=== PATIENT | female | born 1975 | race Caucasian/White ===

== ENCOUNTER 2025-06-18 11:51 | Inpatient (IN) | payer OTHER, SELFPAY ==
[2025-06-18 07:08] VITALS: BP 138/90
--- NOTE | 2025-06-18 07:41 | ED.GENMED ---
History of Present Illness
General
Chief Complaint: Abdominal Pain
Source: patient
Exam Limitations: none
Time Seen by Provider: 06/18/25 07:17
Nursing documentation reviewed up to this point in time: agreed with
History of Present Illness
History of Present Illness:
Patient with history of IBS, currently taking Wegovy since September 2024 for weight management, presents to ED secondary to worsening abdominal pain associated with nausea and vomiting, since increasing her dose of Wegovy 8 days ago. Since
September, every time she gives her weekly injection, patient reports 'wave of gut punching' sensation which would last up to 48 hours with resolution. However, when she increased her dose 8 days ago, she experienced similar abdominal symptoms but
has not resolved, but has worsened over the past 24 hours. Denies fever or chills. Denies trauma. Patient reports constant diarrhea, which is not new. Denies dizziness or shortness of breath.
Review of Systems
Review of Systems
Allergies reviewed?: Yes
All Other Systems: ROS reviewed and negative except as documented in HPI and ROS
Constitutional: Reports no symptoms; Denies fever
Respiratory: Reports no symptoms
Cardiac: Reports no symptoms
ABD/GI: Reports abdominal pain, nausea, vomiting and diarrhea
Musculoskeletal: Reports no symptoms
Skin: Reports no symptoms
Neurological: Reports no symptoms
Phy Exam
Physical Exam
Physical Exam:
Physical Exam
General: no apparent distress, not acutely ill. afebrile
Head: nc/at. eomi
Neck: supple. no meningeal signs.
Heart: s1/s2 regular rate and rhythm.
Lungs: no acute respiratory distress. clear bilaterally
Abdomen: normal bowel sounds. mild epigastric tenderness to palpation
Neuro: alert and oriented x 3. no focal neurological deficits
Skin: no rash
Psychiatric: well kept. interactive and cooperative
Extremities: no edema. no calf tenderness.
Course
Orders/Labs/Results
Orders:
Orders
06/18/25 07:32
Test Result ONCE
06/18/25 07:34
Morphine Sulfate 2 mg IV NOW STA
US Abdomen Complete/Upper Urgent
Comment:
Reason For Exam: RUQ pain
06/18/25 07:35
0.9% Sodium Chloride 500 ml [Nss] 500 ml IV BOLUS
Ondansetron Injectable [Zofran] 4 mg IV NOW STA
06/18/25 07:49
Complete Blood Count/With Diff Urgent
Comprehensive Metabolic Panel Urgent
HCG, Serum Qualitative Screen Urgent
Lipase Urgent
06/18/25 07:57
Pantoprazole [Protonix IV] 40 mg .ROUTE .STK-MED ONE
06/18/25 07:58
Pantoprazole [Protonix IV] 40 mg IV NOW STA
06/18/25 08:03
CR Obstruct Series W/pa Chest Urgent
Comment:
Reason For Exam: abd pain
06/18/25 10:39
MRI Abdomen [MR Abdomen W/o & W Contrast] Routine
Comment: with MRCP
Reason For Exam: epigastric pain, 6 mm cbd calculus on US
Recent pill cam endoscopy?: No
06/18/25 10:42
GASTROINTESTINAL CONSULT Routine
Consulting Provider: Mary Jane Bales
Was physician already notified: Yes
06/18/25 10:43
Admit/Transfer Patient As Directed
Co-Sign Provider:
Level of Care: Inpatient admission
Assign to:: Medical/Surgical
Physician / Group: Hospitalist
Diagnosis: Abdominal pain
Reason for Hospitalization: as above
Expected length of stay greater than two midnights?: Yes
ELOS- Estimated Length of Stay in days: 2
I certify the patient meets the requirements for IP care: Yes
PRN Pain Medication Management As Directed
May give lesser potent ordered pain med per pt: Yes
preference::
Protocol:: Medication orders for pain may be administered in a
manner that supports deferring to patient preference
when the pt is:
- Requesting an ordered lesser potent pain medication.
Least to most potent pain medications are defined
as: acetaminophen < NSAID < tramadol < opioids
(morphine, oxycodone, hydromorphone).
- Requesting a lesser dose of the same medication IF
ORDERED.
- Requesting a less intrusive route of administration
if both routes are prescribed by the provider (PO <
IV).
06/18/25 10:44
Code Status As Directed
Resuscitation Status: Full Code
06/18/25 11:26
Blood Culture Q30M
FRANK Source: Blood/Venous
Specimen Description:
Morphine Sulfate 2 mg IV Q6HPRN PRN
Ondansetron Injectable [Zofran] 4 mg IV Q6HPRN PRN
06/18/25 11:27
Blood Culture Q30M
FRANK Source: Blood/Venous
Specimen Description:
06/18/25 12:00
Piperacillin/Tazo 3.375 Gram [Zosyn] 3.375 gram in 50 ml IV Q6H
Abnormal Lab Results
06/18/25
07:49
Glucose 102 H mg/dl
(70-99)
06/18/25 07:49
06/18/25 07:49
Vital Signs
Initial and Last Documented VS:
Initial Vital Signs
Temp Pulse Resp BP Pulse Ox
97.9 F 88 18 138/90 99
06/18/25 07:08 06/18/25 07:08 06/18/25 07:08 06/18/25 07:08 06/18/25 07:08
Last Documented Vital Signs
Temp Pulse Resp BP Pulse Ox
97.9 F 52 20 121/63 97
06/18/25 07:08 06/18/25 09:02 06/18/25 09:02 06/18/25 09:02 06/18/25 09:02
MDM/Problems Addressed
MDM/Problems Addressed:
Ultrasound abdomen report reviewed with patient and family. In addition, discussed with on-call GI physician, Dr. Mary Jane Bales, who recommends admission to hospitalist service for further evaluation and treatment, including MRCP.
*Pulse Oximetry
SaO2: 99
Oxygen Mode of Delivery: Room air
Patient hypoxic: no
*Critical Care Note
Total Time (30-74mins, 75-104mins- exclusive of procedures): Not Applicable
ED Attending Note
-
Portions of this chart may have been created with voice recognition software.� Occasional wrong word or��sound alike� substitutions may have occurred due to the inherent limitations of voice recognition software.
Discharge Plan
Departure
Patient Disposition: Admit
Date of Disposition: 06/18/25
Time of Disposition: 09:37
Admit to: Med/Surg
Presentation/result/management discussed w/ accepting MD/: Hospitalist
Discharge Problem:
Abdominal pain
Interventions
Interventions:
*Risk Screen - Suicide Last Done: 06/18/25 07:08
*General Assessment Last Done: 06/18/25 07:08
*Neglect/Abuse Screening Last Done: 06/18/25 07:08
*ED- Fall Risk Assessment Last Done: 06/18/25 11:06
XA-Tmwceo-Hcrracrffr Assessment Last Done: 06/18/25 07:41
[2025-06-18] MEDS: ZOFRAN 4 MG IV ×2 (07:47→11:31)
[2025-06-18] MEDS: NSS 500 IV (07:48)
[2025-06-18] MEDS: MORPHINE SULFATE 2 MG IV ×2 (07:48→12:35)
[2025-06-18] MEDS: PROTONIX IV 40 MG IV (07:58)
[2025-06-18 08:12] LABS: Hematocrit 37.4 % (37.0-47.0); Hemoglobin 12.7 g/dL (12.0-16.0); Mean Corp Hgb Conc. 34.0 g/dL (33.0-37.0); Mean Corpuscular Volume 89.0 fL (81.0-99.0); Nucleated Red Blood Cells % 0 %; Platelet Count 323 10^3/uL (130-400); Red Cell Dist. Width 12.2 % (11.5-14.5)
[2025-06-18 08:25] LABS: HCG, Serum Qualitative Screen Negative
[2025-06-18 08:26] LABS: ALT (SGPT) 16 U/L (0-35); AST (SGOT) 17 U/L (14-36); Albumin 3.6 g/dl (3.5-5.0); Alkaline Phosphatase 76 U/L (38-126); Blood Urea Nitrogen 10 mg/dl (7-17); Calcium 9.4 mg/dl (8.4-10.2); Carbon Dioxide 25 mmol/L (22-30); Chloride 104 mmol/L (98-107); Glucose 102 mg/dl (70-99); Lipase 127 U/L (23-300); Potassium 4.5 mmol/L (3.5-5.1); Sodium 135 mmol/L (135-145); Total Protein 7.0 g/dl (6.3-8.2); eGFR > 60.00
[2025-06-18 09:02] VITALS: BP 121/63
--- NOTE | 2025-06-18 10:13 | HPS.HSE ---
Family Physician
-
Family Physician: * NONE
Chief Complaint
-
Abdominal pain
History of Present Illness
This is a 50-year-old female with past medical history of IBS with chronic diarrhea, presenting to the ED with worsening abdominal pain that began on Monday. Initially the pain was a / but has since progressed to 08/08. She reports taking
Wegovy since September and has recently increased the dosage from 1.0mg to 1.7mg yesterday. Since starting Wegovy, she has been experiencing intermittent abdominal pain that usually resolves on its own, but this current episode has persisted. The
pain is described as a sharp, bandlike and localized to the epigastric region without radiation. This new episode started while she was eating breakfast, although patient states typically pain has not been meal related. She also reported nausea and
a single episode of vomiting yesterday. She has not taken any medication for this pain.
Her history is notable for IBS with diarrhea, but she reports that since starting Wegovy her diarrhea has improved. She has been using MiraLAX for constipation over the past 5 days with her last bowel movement occurring 2 days ago. Pertinent to her
history, she underwent cholecystectomy 2 years ago (March 2023) without complications ever since then. At bedside, she admits fever, chills episode yesterday. She denies NSAID use. She denies alcohol use.
Upon presentation to the ED, blood pressure 138/90, pulse 88, temperature 97.9, respiratory rate 18, O2 sat 99% on room air.� CBC unremarkable, CMP unremarkable, lipase 127.
Medical History
Past Medical History
Past Medical History: Reports Other (IBS)
Past Surgical History: Reports Cholecystectomy
Social History
Tobacco: Non-smoker
Alcohol: Occasional
Drug: None
Living: With Family
Family History
Family History: Not pertinent
Allergies / Home Medications
Allergies reflects when Allergies were last updated in [facility].
Home Medications with original date entered in [facility]
Allergy/Medication List:
Allergies
Allergy/AdvReac Type Severity Reaction Status Date / Time
latex Allergy Mild Itching Verified 06/18/25 07:14
caffeine Allergy Itching Verified 06/18/25 07:14
semaglutide (From Rybelsus) Allergy Unknown Verified 06/18/25 07:14
Home Medications
calcium 333 mg-vit D3 133 unit-magnesium 133 mg-zinc 5 mg tablet 1 tab PO DAILY 06/18/25
desogestrel-ethinyl estradiol 0.1 mg/0.125 mg/0.15 mg-25 mcg tablet (Velivet Triphasic Regimen (28)) 1 tab PO DAILY 06/18/25
fluticasone propionate 50 mcg/actuation nasal spray,suspension 1 spray intranasal DAILYPRN PRN allergies 06/18/25
polyethylene glycol 3350 17 gram oral powder packet (Miralax) 17 g PO DAILYPRN PRN constipation 06/18/25
semaglutide (weight loss) 1.7 mg/0.75 mL subcutaneous pen injector (Wegovy) 1.7 mg SC TU 06/18/25
Review of Systems
-
A 12 point ROS was completed and negative except as noted: Yes
Constitutional: Reports Other (All review of systems obtained and negative except as documented)
Physical Exam
Vital Signs
Vital Signs
Temp Pulse Resp BP Pulse Ox
97.9 F 52 20 121/63 97
06/18/25 07:08 06/18/25 09:02 06/18/25 09:02 06/18/25 09:02 06/18/25 09:02
Physical Exam
General: Well Developed, Well Nourished and No Apparent Distress
HEENT: NormoCephalic
Respiratory: Clear
Cardiac: S1/S2 and Regular Rhythm
GI: Soft, Non Distended, Normal Bowel Sounds and Tender (Epigastric region)
Musculoskeletal: No Edema
Neuro: AO x 3
Psych: Calm
Laboratory Results
-
06/18/25 07:49
06/18/25 07:49
Laboratory Results
Total Bilirubin 0.6 mg/dl (0.2-1.3) 06/18/25 07:49
AST 17 U/L (14-36) 06/18/25 07:49
ALT 16 U/L (0-35) 06/18/25 07:49
Alkaline Phosphatase 76 U/L (38-126) 06/18/25 07:49
Lipase 127 U/L (23-300) 06/18/25 07:49
Impression/Plan
-
Assessment/plan
#Abdominal pain with nausea and vomiting, recent Wegovy dose increased
-Likely multifactorial in the setting of Wegovy related adverse effect vs common bile duct stone
-Hx of cholecystectomy 2 years ago
-Lipase level within normal limit
-Abdominal ultrasound- Common bile duct measures up to 7.6 mm, which is within normal range of less than 10 mm after cholecystectomy. However, there is a probable 6 mm common bile duct calculus in the region of the faye hepatis.
-Will obtain MRI w MRCP
-IV fluids, Zofran, morphine as needed
-GI consulted
-Hold wegovy until further evaluation
-Given Fever, chills, Obtain blood cultures x2
-Abx with Zosyn
-Monitor WBC, temp curve.
CODE STATUS full code
DVT prophylaxis Lovenox
--- NOTE | 2025-06-18 10:18 | PHANOTE ---
med rec note- patient took a family member tramadol yesterday 06/17/2025 for a total dose of 100mg
--- NOTE | 2025-06-18 11:22 | W.PN.UPDATE ---
Update Note
Progress Note Update
HPI: 50-year-old female with past medical history of IBS with chronic diarrhea, on Wegovy for weight control, p/w epigastric abd pain for 4-5 days.
She also c/o fever and chills.
A/P:
# Epigastric abdominal pain with nausea and vomiting, 2/2 CBD stone
# H/o cholecystectomy 2 years ago
Abd US: probable 6 mm common bile duct calculus in the region of the faye hepatis.
Check MRCP
NPO, IVF, pain control with morphine as needed
GI consult
# Fever and chills
Check blood cultures x2
cover with empiric abx Zosyn
Monitor WBC, temp curve.
# Wegovy use for weight control, recent dose increase
Recc to hold off for now in setting of abd pain
DVT prophylaxis Lovenox
CODE STATUS full code
[2025-06-18] MEDS: ZOSYN 50 IV ×3 (11:32→23:39)
[2025-06-18 12:40] VITALS: BP 123/81
[2025-06-18] MEDS: REGLAN 5 MG IV (12:50)
--- NOTE | 2025-06-18 13:03 | CON.GI ---
Addendum entered and electronically signed by Mary Jane Gongora Do, MD 06/18/25 15:35:
I saw and evaluated the patient. I reviewed the resident�s note and agree with findings and plan as documented in the resident�s note. I saw and evaluated the patient. I reviewed the resident�s note and agree with findings and plan as documented in
the resident�s note.
Gisel is a 50yo W visting from [place] with h/o IBS-D, CYY and GLP1 use starting 09/2023 who was admitted for worsening epigastric pain. She started weygovy in 09/2023 for wt loss and 1-2 days post injection there is nausea with
epigastric abd pain. She increased dose recently and gave it to herself yesterday. This AM awoken with nausea/vomiting and severe pain so came to ER. She is here visiting with mom for this weekend with plans to drive home on Monday. She
states sensation feels like prior GB attack 2yrs ago when she had cholecystectomy done then. She denies odynophagia dysphagia constipation or blood in stools. She has chronic loose stools since childhood. VSS obese NTTP NABS. Labs reviewed
normal WBC, Hgb and LFTs. Abd US with CBC 7.6mm and probably 6mm CBD calculus in region of faye hepatitis.
Impression
- Abd pain and Abnormal Abd US with CBD dilation suspicious for choledocholithiasis without cholangitis
- GLP1 use
- IBS-D
- Obesity
- S/p CYY
Recommendations
- MRI/MRCP
- Pending above determine timing of ERCP
- C/w abx
- BC pending
- C/w PPI
Will follow with you
Original Note:
Consultation
-
Date/Time Consultation Requested: 06/18/2025 10:42
Date/Time Consultation Performed: 06/18/2025 12:00
Requesting Provider: Stanford Nunes MD (Resident)
Performing Provider: Ang Price DO (Resident); Mary Jane Bales MD
Reason for Consultation: Abdominal Pain
Medical History
Chief Complaint / HPI
Chief Complaint: Abdominal Pain
History of Present Illness:
Date of Service: June 18, 2025
Gisel Garcia is a 50F with a PMHx of IBS-D, cholecystectomy in 2022 complicated by dumping syndrome, and Wegovy use since September of 2023 who is presenting for upper abdominal pain. She states that the pain is centered around the
epigastrium, but is also present in a band like formation and goes around to the back bilaterally. She states that she has had similar episodes of this pain since starting Wegovy in September of 2023. It feels like a dull pressure and rates it a
5/10. The pain usually resolves, however, when she started experiencing the current episode of pain on Monday, it did not go away. The pain gradually worsened and by Monday, she rated it a 10/10 with associated chills, sweating, and vomiting. The
pain will subside to a 0/10 but then start again. The patient cannot find a causative food or situation for the pain. She does note that the pain is worse with lying down and sitting upright, and that is better when she lays on either side of her
body. Patient otherwise denies icterus, jaundice, dysphagia, odynophagia, hematochezia, or melena. She also denies reflux and changes in bowel consistency but does note that she has been having reflux since starting Wegovy, and that her stools are
usually a [place] Type 6 at baseline due to IBS-D, but that with Wegovy, she has been closer to a [place] Type 4. She reports constipation over the past 5 days with her last BM occurring 2 days ago, for which she has been using Miralax.
ED COURSE
Mild epigastric tenderness on exam, CBC nl, CMP nl, lipse 127
Abdomen US: CBD 7.6 mm (post-CCY), probable 6mm bile duct stone in the region of the faye hepatis
Abdomen XR: No SBO, no free air.
Past Medical History
Past Medical History: Other (IBS-D, dumping syndrome, GERD, Wegovy use since September 2023)
Past Surgical History: Cholecystectomy
Social History
Tobacco: Non-Smoker
Alcohol: Occasional
Drug: None
Allergies / Home Medications
Allergy/AdvReac Type Severity Reaction Status Date / Time
latex Allergy Mild Itching Verified 06/18/25 07:14
caffeine Allergy Itching Verified 06/18/25 07:14
semaglutide (From Rybelsus) Allergy Unknown Verified 06/18/25 07:14
�Medication �Instructions �Recorded
calcium 333 mg-vit D3 133 1 tab PO DAILY 06/18/25
unit-magnesium 133 mg-zinc 5 mg
tablet
desogestrel-ethinyl estradiol 0.1 1 tab PO DAILY 06/18/25
mg/0.125 mg/0.15 mg-25 mcg tablet
(Velivet Triphasic Regimen (28))
fluticasone propionate 50 1 spray intranasal DAILYPRN PRN 06/18/25
mcg/actuation nasal allergies
spray,suspension
polyethylene glycol 3350 17 gram 17 g PO DAILYPRN PRN constipation 06/18/25
oral powder packet (Miralax)
semaglutide (weight loss) 1.7 1.7 mg SC TU 06/18/25
mg/0.75 mL subcutaneous pen
injector (Wegovy)
Review of Systems
-
History Source: Patient
All other systems: A 12 pt ROS was Negative except as stated above in HPI
Vital Signs
Temp Pulse Resp BP Pulse Ox
97.9 F 78 16 123/81 97
06/18/25 07:08 06/18/25 12:40 06/18/25 12:40 06/18/25 12:40 06/18/25 12:40
Physical Exam
Exam
General: Well Developed, Well Nourished and Comfortable
HEENT: Normocephalic and Anicteric
GI: Soft, Non Distended, Normal Bowel Sounds and Tender (mild, epigastrium)
Genito-urinary: No Costovertebral Tender
Skin: Warm and Other (non-jaundiced)
Neuro: Awake and Alert
Psych: Calm
Results
WBC 9.1 10^3/uL (4.8-10.8) 06/18/25 07:49
Hgb 12.7 g/dL (12.0-16.0) 06/18/25 07:49
Hct 37.4 % (37.0-47.0) 06/18/25 07:49
MCV 89.0 fL (81.0-99.0) 06/18/25 07:49
Plt Count 323 10^3/uL (130-400) 06/18/25 07:49
Absolute Neuts (auto) 6.0 10^3/uL (1.4-6.5) 06/18/25 07:49
Sodium 135 mmol/L (135-145) 06/18/25 07:49
Potassium 4.5 mmol/L (3.5-5.1) 06/18/25 07:49
Chloride 104 mmol/L (98-107) 06/18/25 07:49
Carbon Dioxide 25 mmol/L (22-30) 06/18/25 07:49
BUN 10 mg/dl (7-17) 06/18/25 07:49
Creatinine 0.6 mg/dL (0.6-1.0) 06/18/25 07:49
Calcium 9.4 mg/dl (8.4-10.2) 06/18/25 07:49
Total Bilirubin 0.6 mg/dl (0.2-1.3) 06/18/25 07:49
AST 17 U/L (14-36) 06/18/25 07:49
ALT 16 U/L (0-35) 06/18/25 07:49
Alkaline Phosphatase 76 U/L (38-126) 06/18/25 07:49
Lipase 127 U/L (23-300) 06/18/25 07:49
Diagnostic Image Results:
US Abdomen (06/18/2025): Status post cholecystectomy. Common bile duct measures up to 7.6 mm, which is within normal range of less than 10 mm after cholecystectomy. However, there is a probable 6 mm common bile duct calculus in the region of the
faye hepatis.
Chest/Abdomen XR (06/18/2025): No evidence for bowel obstruction. No evidence of free intraperitoneal air.
Colonoscopy: (as reported by patient)
April 2023: polyps removed, normal histology, 5 year follow up
Assessment / Plan
-
Gisel Garcia is a 50F with a PMHx of IBS-D, cholecystectomy in 2022 complicated by dumping syndrome, and Wegovy use since September of 2023 who is presenting for episodic upper abdominal pain that is worse and more persistent since 5 days
ago. She has epigastric tenderness on exam and ultrasound showing a stone in a common bile duct which may be the cause of these symptoms. Patient should get an MR/MRCP to evaluate for stones and possible blockage, but patient is currently without
elevated LFTs, jaundice, or icterus. Pending the results of the MR/MRCP, patient may elect for EUS/ERCP for stone removal. Patient is originally from [place] where she has an established relationship with a automation engineer and she requests
that treatment be delayed if pain can be managed until she gets back to [place]. If MRCP shows small stones and patient remains stable, this could be a possibility.
- Follow up results of MR/MRCP.
- Trend LFTs.
- Monitor for fevers, jaundice, icterus.
- Consider EUS/ERCP pending MR results.
Total Time Spent with Patient (in minutes): 32
-
-
Thank you for consultation and allowing me to participate in the patient's care. Please call the dean of admissions GI physician during the after hours with any questions or concerns.
[2025-06-18 14:29] VITALS: BP 122/75
[2025-06-18] MEDS: NSS 1000 IV (14:54)
--- NOTE | 2025-06-18 16:13 | PTCARENOTE ---
messaged hospitalist and cross cover on behalf of pt. She is asking for Ativan for MRCP d/t claustrophobia
--- NOTE | 2025-06-18 16:41 | PTCARENOTE ---
Patient taken to MRI for MRCP and was not able to tolerate due to severe claustrophobia. RN obtained an order for Ativan x1, but patient refused this dose and continues to refuse MRI due to the claustrophobia. RN and mri technicians had discussion
with her about possible benefits and how Ativan works, but patient states 'unless I am put out, I can not go back down MRI'. Technicians and RN told patient that staff needs her to still be able to respond for mri, so we will not be able to give
stronger sedation. All of this relayed to hospitalist and GI MD.
[2025-06-18 23:24] VITALS: BP 124/94
[2025-06-19] VITALS (9 sets, daily range): BP systolic 120–140; BP diastolic 63–96
[2025-06-19] MEDS: NSS 1000 IV ×2 (02:45→19:48)
[2025-06-19] MEDS: MIRALAX 17 GRAMS PO (05:00)
[2025-06-19] MEDS: ZOSYN 50 IV ×3 (05:22→19:48)
[2025-06-19] MEDS: PROTONIX 40 MG PO (06:26)
[2025-06-19 07:23] LABS: Hematocrit 39.9 % (37.0-47.0); Hemoglobin 13.0 g/dL (12.0-16.0); Mean Corp Hgb Conc. 32.6 g/dL (33.0-37.0); Mean Corpuscular Volume 90.9 fL (81.0-99.0); Nucleated Red Blood Cells % 0 %; Platelet Count 347 10^3/uL (130-400); Red Cell Dist. Width 12.6 % (11.5-14.5)
[2025-06-19 07:57] LABS: ALT (SGPT) 29 U/L (0-35); AST (SGOT) 32 U/L (14-36); Albumin 3.7 g/dl (3.5-5.0); Alkaline Phosphatase 95 U/L (38-126); Blood Urea Nitrogen 7 mg/dl (7-17); Calcium 8.7 mg/dl (8.4-10.2); Carbon Dioxide 27 mmol/L (22-30); Chloride 105 mmol/L (98-107); Glucose 82 mg/dl (70-99); Potassium 4.4 mmol/L (3.5-5.1); Sodium 136 mmol/L (135-145); Total Protein 6.8 g/dl (6.3-8.2); eGFR > 60.00
[2025-06-19] MEDS: OSCAL CAL 500 500 MG PO (08:58)
--- NOTE | 2025-06-19 08:59 | W.PN.HOSP.TC ---
Today's Communication/Plan
-
see A/P
Assessment / Plan
Assessment / Plan
HPI: 50-year-old female with past medical history of IBS with chronic diarrhea, on Wegovy for weight control, p/w epigastric abd pain for 4-5 days.
She also c/o fever and chills.
A/P:
# Epigastric abdominal pain with nausea and vomiting, possibly 2/2 CBD stone
# H/o cholecystectomy 2 years ago
Abd US: probable 6 mm common bile duct calculus in the region of the faye hepatis.
unfortunately pt could not tolerate MRCP
LFT WNL
Plan for EUS
cont NPO, IVF, pain control with morphine as needed
GI on board
# Fever and chills per pt
Follow blood cultures x2
cover with empiric abx Zosyn
Monitor WBC, temp curve, so far both stable
# Wegovy use for weight control, recent dose increase
Recc to hold off for now in setting of abd pain
DVT prophylaxis Lovenox
CODE STATUS full code
DW GI team
Anticipated Discharge: 24 - 48 hours
Subjective/Interval History
-
Date of Service: June 19, 2025
Objective Data
-
Labs:
Laboratory Results
06/19/25
06:38
WBC 7.8
Hgb 13.0
Hct 39.9
Plt Count 347
Sodium 136
Potassium 4.4
Chloride 105
Carbon Dioxide 27
BUN 7
Creatinine 0.8
Glucose 82
Calcium 8.7
Total Bilirubin 0.8
AST 32
ALT 29
Alkaline Phosphatase 95
Vital Signs:
Vital Signs
Temp Pulse Resp BP Pulse Ox
36.9 C 72 18 120/75 99
06/19/25 07:45 06/19/25 07:45 06/19/25 07:45 06/19/25 07:45 06/19/25 07:45
I&O
06/18/25 06/19/25 06/20/25
06:59 06:59 06:59
Intake Total 1929
Balance 1929
Review of Systems
-
History Source: Patient
Abdomen/GI: Reports Abdominal Pain (epigastric discomfort)
Physical Exam
-
General: Well Developed, Well Nourished, No Apparent Distress, Comfortable and Conversant; Negative Respiratory Distress
HEENT: Normocephalic, Atraumatic, Nose Appears Normal and Ears Appear Normal; Negative Oxygen
Respiratory: Clear to Auscultation and Non Labored Respirations; Negative Accessory Resp Muscle Use
Cardiac: Regular Rhythm and S1/S2
GI: Soft, Nondistended and Normal Bowel Sounds
Skin: Warm and Dry
Neuro: Awake, Alert, Oriented, AO x 3 and Nonfocal/Grossly Intact
Psych: Calm and Intact Judgement/Insight
Data Reviewed
-
Labs: Labs Reviewed by me
--- NOTE | 2025-06-19 09:03 | W.PN.GI.CBS2 ---
Addendum entered and electronically signed by Mary Jane Gongora Do, MD 06/19/25 11:57:
I saw and examined the patient.
The [employer] MANAGER's note was reviewed and I agree with the note.
Comment: Her abd pain is improved but still 5 out of 10. She tolerated CLD yesterday and has been NPO today. Refused MRI due to anxiety Vitals stable exam obese no guarding mild TTP epigastric. Labs reviewed LFTs normal . Abd US with
choledocholithiasis.
Recommendations
- NPO
- ERCP today case d/w Dr Avila
- LFTs stable
- Anticipate diet after above
Will follow with you
Addendum entered and electronically signed by CRISTEL Humphreys 06/19/25 10:01:
reviewed with dr. Bales plan for ERCP today--pt aware
Original Note:
Today's Communication / Plan
-
Etiology of abdominal pain related to CBD stone as noted possible on US vs side effect of Wegovy
pt declined MRI
will review with Dr. Avila for EUS with possible ERCP later today-- pt is agreeable to proceed
NPO
cont abx
LFT's and WBC's remain normal
OP follow up with primary GI on return to [place] for fatty liver
US report reviewed and given to patient-- should request other chart on discharge
hold lovenox and add comp stocking, add INR
discussed low fat diet on discharge
Assessment / Plan
-
Gisel is a 50yo W visiting from [place] with h/o IBS-D, CYY and GLP1 use starting 09/2023 who was admitted for worsening epigastric pain and shaking chills. She started weygovy in 09/2023 for wt loss and 1-2 days post injection there
is nausea with epigastric abd pain. She increased dose recently and gave it to herself prior to admission then awoken with nausea/vomiting and severe pain so came to ER. She is here visiting with mom for wedding this weekend with plans to drive
home on Monday. She states sensation feels like prior GB attack 2yrs ago when she had cholecystectomy done then. Labs reviewed normal WBC, Hgb and LFTs. Abd US with CBC 7.6mm and probably 6mm CBD calculus in region of faye hepatitis.
06/18/25- US abdomen
Status post cholecystectomy. Common bile duct measures up to 7.6 mm, which is within normal range of less than 10 mm after cholecystectomy. However, there is a probable 6 mm common bile duct calculus in the region of the faye hepatis. As warranted,
consideration for further evaluation with MRI of the abdomen/MRCP.
Fatty infiltration of the liver.
Impression
- Abd pain and Abnormal Abd US with CBD dilation suspicious for choledocholithiasis without cholangitis
- GLP1 use with recent increased dose
- IBS-D post frantz worse failed Questran trial
- Obesity
- S/p CYY
-fatty liver per US on admission
Recommendations
Etiology of abdominal pain related to CBD stone as noted possible on US vs side effect of Wegovy
pt declined MRI
will review with Dr. Avila for EUS with possible ERCP later today-- pt is agreeable to proceed
NPO
cont abx
LFT's and WBC's remain normal
OP follow up with primary GI on return to [place] for fatty liver
US report reviewed and given to patient-- should request other chart on discharge
hold lovenox and add comp stocking, add INR
discussed low fat diet on discharge
Subjective
Subjective
Date of Service: June 19, 2025
abdominal pain with some improvement but has not eaten much and now NPO unable to tolerate MRI
Objective
Data Reviewed
Laboratory Data:
Laboratory Results
06/19/25 06:38
06/19/25 06:38
Laboratory Results
Total Bilirubin 0.8 mg/dl (0.2-1.3) 06/19/25 06:38
AST 32 U/L (14-36) 06/19/25 06:38
ALT 29 U/L (0-35) 06/19/25 06:38
Alkaline Phosphatase 95 U/L (38-126) 06/19/25 06:38
Lipase 127 U/L (23-300) 06/18/25 07:49
Vital Signs and I&O:
Vital Signs
Temp Pulse Resp BP Pulse Ox
98.4 F 72 18 120/75 99
06/19/25 07:45 06/19/25 07:45 06/19/25 07:45 06/19/25 07:45 06/19/25 07:45
I&O
06/18/25 06/19/25 06/20/25
06:59 06:59 06:59
Intake Total 1929
Balance 1929
Physical Exam
Physical Exam
HEENT: Anicteric and Moist mucous membranes
Cardiology: Normal Sinus Rhythm
Pulmonary: Clear
GI: Soft, Non Distended and Non Tender
Extremities: No Edema
Neuro: Non Focal
[2025-06-19 09:51] LABS: INR 0.96; PT 13.2 Sec (11.4-14.6)
--- NOTE | 2025-06-19 15:39 | CM ---
manager nursing reviewed patient's chart and met with patient and mother at bedside, patient is visiting from out of town, per patient she independent with adl's and ambulation, no dme, patient drives, home when stable, no needs.
PCP: No PCP in this area
Pharmacy: [facility] in [place]
[2025-06-19] MEDS: ZOFRAN 4 MG IV (18:59)
[2025-06-19] MEDS: COMPAZINE 5 MG IV (19:29)
[2025-06-19] MEDS: NSS IV (19:48)
[2025-06-20] MEDS: ZOSYN 50 IV ×2 (00:35→05:44)
[2025-06-20 03:22] VITALS: BP 132/77
[2025-06-20] MEDS: REGLAN 10 MG IV (06:07)
[2025-06-20 07:35] LABS: Hematocrit 36.3 % (37.0-47.0); Hemoglobin 12.3 g/dL (12.0-16.0); Mean Corp Hgb Conc. 33.9 g/dL (33.0-37.0); Mean Corpuscular Volume 89.4 fL (81.0-99.0); Nucleated Red Blood Cells % 0 %; Platelet Count 332 10^3/uL (130-400); Red Cell Dist. Width 12.1 % (11.5-14.5)
[2025-06-20 08:00] VITALS: BP 137/80
[2025-06-20 08:03] LABS: ALT (SGPT) 132 U/L (0-35); AST (SGOT) 246 U/L (14-36); Albumin 3.4 g/dl (3.5-5.0); Alkaline Phosphatase 187 U/L (38-126); Blood Urea Nitrogen 6 mg/dl (7-17); Calcium 8.6 mg/dl (8.4-10.2); Carbon Dioxide 24 mmol/L (22-30); Chloride 108 mmol/L (98-107); Glucose 93 mg/dl (70-99); Potassium 4.5 mmol/L (3.5-5.1); Sodium 138 mmol/L (135-145); Total Protein 6.5 g/dl (6.3-8.2); eGFR > 60.00
[2025-06-20] MEDS: OSCAL CAL 500 500 MG PO (08:15)
--- NOTE | 2025-06-20 10:18 | W.PN.HOSP.TC ---
Today's Communication/Plan
-
see A/P
Assessment / Plan
Assessment / Plan
HPI: 50-year-old female with past medical history of IBS with chronic diarrhea, on Wegovy for weight control, p/w epigastric abd pain for 4-5 days.
She also c/o fever and chills.
A/P:
# Epigastric abdominal pain with nausea and vomiting, possibly 2/2 CBD stone
# H/o cholecystectomy 2 years ago
Abd US: probable 6 mm common bile duct calculus in the region of the faye hepatis.
unfortunately pt could not tolerate MRCP
s/p ERCP 06/19: largely unrevealing. The major papilla appeared normal. A pancreatic sphincterotomy was performed. One stent was placed into the ventral pancreatic duct. A biliary sphincterotomy was performed. The biliary tree was swept and scant
amount of sludge was found. No stone was extracted.
Advance clears to low fat and monitor for tolerance
d/w GI team, check AXR in 2 weeks to confirm migration of PD stent.
Elevated LFT today likely 2/2 ERCP. If discharge today, check LFT within 1 week outpt.
GI on board
# Fever and chills per pt, resolved
blood cultures x2 negative
DC empiric Zosyn
Monitor WBC, temp curve, so far both stable
# Wegovy use for weight control, recent dose increase
Recc to hold off for now in setting of abd pain
DVT prophylaxis Lovenox
CODE STATUS full code
DW GI team
VALERY RN
Anticipated Discharge: Today
Subjective/Interval History
-
Date of Service: June 20, 2025
Objective Data
-
Labs:
Laboratory Results
06/20/25
06:54
WBC 9.0
Hgb 12.3
Hct 36.3 L
Plt Count 332
Sodium 138
Potassium 4.5
Chloride 108 H
Carbon Dioxide 24
BUN 6 L
Creatinine 0.8
Glucose 93
Calcium 8.6
Total Bilirubin 2.7 H D
AST 246 H
ALT 132 H
Alkaline Phosphatase 187 H
Vital Signs:
Vital Signs
Temp Pulse Resp BP Pulse Ox
36.7 C 72 16 137/80 98
06/20/25 08:00 06/20/25 08:00 06/20/25 08:00 06/20/25 08:00 06/20/25 08:00
I&O
06/19/25 06/20/25 06/21/25
06:59 06:59 06:59
Intake Total 1929 960 / 960
Balance 1929 960 / 960
Review of Systems
-
History Source: Patient
All other systems: Reviewed and negative
Physical Exam
-
General: Well Developed, Well Nourished, No Apparent Distress, Comfortable and Conversant; Negative Respiratory Distress
HEENT: Normocephalic, Atraumatic, Nose Appears Normal and Ears Appear Normal; Negative Oxygen
Respiratory: Clear to Auscultation and Non Labored Respirations; Negative Accessory Resp Muscle Use
Cardiac: Regular Rhythm and S1/S2
GI: Soft, Nondistended and Normal Bowel Sounds
Skin: Warm and Dry
Neuro: Awake, Alert, Oriented, AO x 3 and Nonfocal/Grossly Intact
Psych: Calm and Intact Judgement/Insight
Data Reviewed
-
Medical Tests (Nuc Med, Echo etc): Report Reviewed by me (ERCP)
Labs: Labs Reviewed by me
--- NOTE | 2025-06-20 10:56 | W.PN.GI.CBS2 ---
Today's Communication / Plan
-
ERCP negative for CBD stone. PD stent placed prophylactically due to cannulation of PD.
LFTs bumped slightly today, agree with recheck LFTs 1 week after d/c
Check xray in 2 weeks to confirm spontaneous passage of PD stent
Perhaps she passed CBD stone. No further severe epigastric pain that felt reminiscent of frantz pain.
F/U with GI in [place] after d/c
OK for d/c if tolerates low fat diet
Assessment / Plan
-
Gisel is a 50yo W visiting from [place] with h/o IBS-D, CYY and GLP1 use starting 09/2023 who was admitted for worsening epigastric pain and shaking chills. She started weygovy in 09/2023 for wt loss and 1-2 days post injection there
is nausea with epigastric abd pain. She increased dose recently and gave it to herself prior to admission then awoken with nausea/vomiting and severe pain so came to ER. She is here visiting with mom for this weekend with plans to drive
home on Monday. She states sensation feels like prior GB attack 2yrs ago when she had cholecystectomy done then. Labs reviewed normal WBC, Hgb and LFTs. Abd US with CBC 7.6mm and probably 6mm CBD calculus in region of faye hepatitis.
06/18/25- US abdomen
Status post cholecystectomy. Common bile duct measures up to 7.6 mm, which is within normal range of less than 10 mm after cholecystectomy. However, there is a probable 6 mm common bile duct calculus in the region of the faye hepatis. As warranted,
consideration for further evaluation with MRI of the abdomen/MRCP.
Fatty infiltration of the liver.
Impression
- Abd pain and Abnormal Abd US with CBD dilation suspicious for choledocholithiasis without cholangitis
- GLP1 use with recent increased dose
- IBS-D post frantz worse failed Questran trial
- Obesity
- S/p CYY
-fatty liver per US on admission
Subjective
Subjective
Date of Service: June 20, 2025
Mild epigastric pain, which has been chronic since starting [facility]
Objective
Data Reviewed
Laboratory Data:
Laboratory Results
06/20/25 06:54
06/20/25 06:54
Laboratory Results
PT 13.2 Sec (11.4-14.6) 06/19/25 09:30
INR 0.96 06/19/25 09:30
Total Bilirubin 2.7 mg/dl (0.2-1.3) H D 06/20/25 06:54
AST 246 U/L (14-36) H 06/20/25 06:54
ALT 132 U/L (0-35) H 06/20/25 06:54
Alkaline Phosphatase 187 U/L (38-126) H 06/20/25 06:54
Lipase 127 U/L (23-300) 06/18/25 07:49
Vital Signs and I&O:
Vital Signs
Temp Pulse Resp BP Pulse Ox
98.1 F 72 16 137/80 98
06/20/25 08:00 06/20/25 08:00 06/20/25 08:00 06/20/25 08:00 06/20/25 08:00
I&O
06/19/25 06/20/25 06/21/25
06:59 06:59 06:59
Intake Total 1929 960 / 960
Balance 1929 960 / 960
Physical Exam
Physical Exam
GI: Soft and Tender (mild epigastric)
--- NOTE | 2025-06-20 10:56 | CM ---
Home today no needs
Plan; Home no needs.
[2025-06-20] MEDS: NSS IV (11:26)
[2025-06-20 12:00] VITALS: BP 135/83
[2025-06-20] MEDS: ZOSYN IV (13:02)
--- NOTE | 2025-06-20 14:24 | W.DCSUMMARY ---
Discharge Summary
Discharge Data
Date of Admission: 06/18/25
Date of Discharge: 06/20/25
Total time spent discharging patient (in min): 40
-
Pending Results: No
Hospital Course
Principal Diagnosis:
Epigastric abdominal pain with nausea and vomiting, possibly 2/2 CBD stone
Chronic Diagnoses:�
H/o cholecystectomy 2 years ago
Wegovy use for weight control, recent dose increase
Consultations:�
Gastroenterology
Procedures:�
ERCP 06/19/2025 was negative for CBD stone. PD stent placed prophylactically due to cannulation of PD.
Clinical course:�
This is a 50-year-old female, with past medical history as stated above, who presented with epigastric abdominal pain.
Problem 1:
Epigastric abdominal pain with nausea and vomiting, possibly 2/2 CBD stone.
Her Abd US noted probable 6 mm common bile duct calculus in the region of the faye hepatis.
Unfortunately she could not tolerate MRCP.
She underwent ERCP on 06/19 which was largely unrevealing, was negative for CBD stone. Pancreatic duct stent placed prophylactically due to cannulation of pancreatic duct.
Her diet was advanced to low-fat which she tolerated well prior to discharge.
Per GI, she needs to check abdominal x-ray in 2 weeks to confirm migration of the pancreatic duct stent.
Her LFT was noted to be elevated likely due to ERCP. She has been informed to check repeat LFT in 1 week, result to outpatient GI doctor.
As for the rest of her medical problems, they were stable during her hospital stay.
Discharge Plan
-
Patient Disposition: Home (Routine Discharge)
Discharge Diagnosis/Procedures: # Epigastric abdominal pain with nausea and vomiting, possibly 2/2 CBD stone (status post ERCP 06/19: largely unrevealing. The major papilla appeared normal. A pancreatic sphincterotomy was performed. One stent was
placed into the ventral pancreatic duct. A biliary sphincterotomy was performed. The biliary tree was swept and scant amount of sludge was found. No stone was extracted).
# Elevated LFT due to ERCP
Condition: Fair
Diet: As tolerated, Low Fat and Low Cholesterol
Activity: As tolerated
Driving Restrictions: As prior to admission
Blood Work: CMP in 1 week
Others Tests: NEED FOLLOW UP ABDOMINAL X-RAY IN 2 WEEKS TO MAKE SURE STENT HAS PASSED
Referrals:
Addy Avila MD [Active, Gastroenterology]
Referral Note: returns to GI in [place] to review symptoms. Will need X ray in 2 weeks to make sure stent has passed. Call Dr. Avila if further questions or records need to be sent to primary GI.
NONE,* [Family Provider, Internal Medicine] - in less than 1 week
Prescriptions:
New
(DME) CMP
See Rx Instructions .Route .MEDSUPPLY Qty: 1 0RF
Rx Instructions:
within 1 week (06/23 to 06/28), result to your PCP/GI
Continued
polyethylene glycol 3350 [Miralax] 17 gram Powder In Packet
17 g PO DAILYPRN PRN (Reason: constipation)
Velivet Triphasic Regimen (28) 0.1/.125/.15-25 mg-mcg Tablet
1 tab PO DAILY
fluticasone propionate 50 mcg/actuation [place],Suspension
1 spray INTRANASAL DAILYPRN PRN (Reason: allergies)
calcium carb-D3-mag ox-zinc ox 333 mg-133 unit -133 mg-5 mg Tablet
1 tab PO DAILY
Held
Wegovy 1.7 mg/0.75 mL Pen Injector
1.7 mg SC TU
Hold Instructions: Resume on 07/04/25.
Discharge Orders:
Discharge Patient (As Directed); Ordered 06/20/25
Ordered By: Linda Lebron
Discharge Date and Time
Discharge Date/Time: 06/20/25 12:58
Print Language: SOU[place]
== END 2025-06-20 12:58 | disposition home or self-care (01) | DRG 395 ==
LOC: 4 WEST ACU 11:51
PROVIDERS: Internal Medicine; Internal Medicine Gastroenterology; Nurse Practitioner Adult Health; Student in an Organized Health Care Education/Training Program; ADMITTING PHYSICIAN Internal Medicine; CONSULT PHYSICIAN Internal Medicine Gastroenterology; EMERGENCY PHYSICIAN Emergency Medicine
PROC: BF101ZZ Fluoroscopy of Bile Ducts using Low Osmolar Contrast (ICD-10-PCS; 2025-06-19)
PROC: 0F7D8DZ Dilation of Pancreatic Duct with Intraluminal Device, Via Natural or Artificial Opening Endoscopic (ICD-10-PCS; 2025-06-19)
DX: K91.86 Retained cholelithiasis following cholecystectomy (principal); K58.0 Irritable bowel syndrome with diarrhea; Z90.49 Acquired absence of other specified parts of digestive tract; Z91.040 Latex allergy status; E66.9 Obesity, unspecified; K21.9 Gastro-esophageal reflux disease without esophagitis
CPT/HCPCS: 74022; 74330; 76000; 76700; 80053; 83690; 84703; 85025; 85610; 87040; 96361; 96374; 96375; 99285; C1769; C2617